=== PATIENT | female | born 1985 | race Hispanic/Latino ===

== ENCOUNTER 2023-02-21 11:45 | Inpatient (IN) | payer BC, OTHER ==
[2023-02-21 12:21] VITALS: BMI 39.4
[2023-02-21] MEDS ORDERED: NIFEdipine 10 MG CAP ONE (12:53)
[2023-02-21] MEDS ORDERED: Labetalol HCl 100 MG/20 ML VIAL ONE (12:53)
[2023-02-21] MEDS ORDERED: hydrALAZINE 20 MG/ML VIAL ONE (12:54)
[2023-02-21] MEDS ORDERED: Magnesium Sulfate 20 gm/500 ml 20 GM/500 ML BAG ONE (12:54)
[2023-02-21] MEDS ORDERED: hydrALAZINE 20 MG/ML VIAL SLOW IVP PRN ×5 (12:57→16:01)
[2023-02-21] MEDS ORDERED: Labetalol HCl 100 MG/20 ML VIAL SLOW IVP PRN ×3 (13:03→16:01)
[2023-02-21] MEDS ORDERED: Calcium Gluc 4.6 MEQ/10 ML (100 MG/ML) SLOW IVP PRN ×2 (13:03→16:01)
[2023-02-21] MEDS ORDERED: Lorazepam 2 MG/ML VIAL SLOW IVP PRN ×2 (13:03→16:01)
[2023-02-21] MEDS ORDERED: Lactated Ringer's 1,000 ML IV SCH (13:15)
[2023-02-21] MEDS ORDERED: Betamet Acet/Betamet Na Ph 30 MG/5 ML VIAL ONE (13:26)
[2023-02-21] MEDS ORDERED: Betamet Acet/Betamet Na Ph 30 MG/5 ML VIAL IM SCH (13:30)
[2023-02-21 13:36] LABS: #Eosinphils 0.1 10x3/uL (0.0-0.5); #Monocytes 0.7 10x3/uL (0.0-1.1); #Neutrophils 5.6 10x3/uL (1.5-8.4); %Basophils 0.3 % (0.0-2.0); %Eosinophils 0.5 % (0.0-6.0); %Lymphocytes 29.5 % (18.0-47.0); Hematocrit 38.1 % (34.9-44.5); Hemoglobin 13.1 g/dL (12.0-15.5); Mean Corpuscular HGB CONC 34.4 g/dL (32.0-36.0); Mean Corpuscular Hemoglobin 30.6 pg (27.0-33.0); Mean Platelet Volume 12.3 fl (7.4-10.4); Platelet Count 224 10x3/uL (150-450); RBC Distribution Width 13.2 % (11.5-14.5); Red Blood Cell (RBC) Count 4.28 10x6/uL (3.90-5.03); White Blood Cell (WBC) Count 9.2 10x3/uL (3.5-10.5)
[2023-02-21 13:41] LABS: Bilirubin Neg (Negative); Blood, Urine Negative (Negative); Clarity Clear (Clear); Glucose, Urine (Dipstick) Normal (Negative); Ketone, Urine Negative (Negative); Leukocyte 25 (Negative); Nitrite Negative (Negative); Protein, Urine (Dipstick) 100 mg/dl (Neg-Trace); Urobilinogen Normal mg/dL (Less than 2)
[2023-02-21] MEDS ORDERED: Ondansetron PF 4 MG/2 ML Vial IVP PRN ×4 (13:47→16:01)
[2023-02-21] MEDS ORDERED: Tranexamic Acid 1,000 MG/10 ML VIAL IVP PRN (13:47)
[2023-02-21] MEDS ORDERED: Promethazine HCl 25 MG/ML VIAL IM PRN ×4 (13:47→16:01)
[2023-02-21] MEDS ORDERED: Acetaminophen 500 MG TAB PO PRN (13:47)
[2023-02-21] MEDS ORDERED: Diphenoxylate HCl/Atropine Tablet PO PRN (13:47)
[2023-02-21] MEDS ORDERED: Carboprost 250 MCG/ML AMP IM PRN (13:47)
[2023-02-21] MEDS ORDERED: Misoprostol 200 MCG TAB PR PRN ×2 (13:47→16:01)
[2023-02-21 13:49] LABS: ALT (SGPT) 11 U/L (8-55); AST (SGOT) 21 U/L (5-34); Albumin 3.4 g/dL (3.5-5.0); Alkaline Phosphatase 80 U/L (40-110); Anion Gap 16 mmol/L (10-20); BUN (Urea Nitrogen) 6 mg/dL (7.0-18.7); Bilirubin, Total 0.3 mg/dL (0.2-1.2); Calc. Creatinine Clearance 228 mL/min (70-130); Calcium 9.1 mg/dL (7.8-10.44); Carbon Dioxide 18 mmol/L (22-29); Chloride 107 mmol/L (98-107); Estimated GFR 123; Glucose 111 mg/dL (70-105); Potassium 4.5 mmol/L (3.5-5.1); Protein, Total 6.4 g/dL (6.0-8.3); Sodium 136 mmol/L (136-145)
[2023-02-21] MEDS ORDERED: Magnesium Sulfate 4 GM in Sodium Chloride 0.9% 250 ML 250 ML IVPB SCH (14:00)
[2023-02-21] MEDS ORDERED: Magnesium Sulfate 20 gm/500 ml 4 GM/100 ML BAG IVPB SCH (14:00)
[2023-02-21] MEDS ORDERED: Magnesium 2 GM/50 ML(in water) 2 GM in Premix Bag 1 BAG IVPB SCH (14:00)
[2023-02-21] MEDS ORDERED: Oxytocin 30 units/NS 500 ML 500 ML IV SCH (14:00)
[2023-02-21] MEDS ORDERED: Magnesium Sulfate 20 gm/500 ml 20 GM/500 ML BAG IVPB PRN (14:00)
[2023-02-21] MEDS ORDERED: Labetalol HCl 100 MG TAB PO SCH (14:00)
[2023-02-21 14:06] LABS: CAUTI Indications for Culture Pregnancy; RBC/HPF None Seen HPF (0-3)
[2023-02-21 14:07] LABS: Bacteria/HPF 2+ HPF (None Seen)
[2023-02-21 14:09] LABS: Urine Culture Reflex Yes Yes
[2023-02-21] MEDS ORDERED: CEFAZOLIN 2 GM VIAL ONE (14:21)
[2023-02-21] MEDS ORDERED: Poractant Alfa 120 MG/1.5 ML SUV ONE (14:22)
[2023-02-21] MEDS ORDERED: PROPOFOL 20 ML ONE (14:44)
[2023-02-21] MEDS ORDERED: Fentanyl 250 MCG/5 ML VIAL ONE (14:44)
[2023-02-21] MEDS ORDERED: Ondansetron PF 4 MG/2 ML Vial ONE (14:54)
[2023-02-21 14:55] LABS: HBSAg Index 0.15 S/CO (0-0.99); Hep B Surf Ag - L&D Non-Reactive S/CO (NonReactive)
[2023-02-21 14:56] LABS: Syphilis Antibody Nonreactive (Nonreactive); Syphilis Antibody Index 0.09 S/CO (<1.00 Non-Reactive)
[2023-02-21 15:08] LABS: RapidComm Collect By OR NURSE
[2023-02-21 15:09] LABS: RapidComm Collect By OR NURSE; pH (Cord, venous) 7.207 (7.250-7.350)
[2023-02-21] MEDS ORDERED: Ondansetron HCl/PF 4 MG/2 ML Vial IVP PRN (15:28)
[2023-02-21] MEDS ORDERED: Naloxone HCl 0.4 mg/ml Vial IV PRN ×2 (15:28→15:30)
[2023-02-21] MEDS ORDERED: diphenhydrAMINE 50 MG/ML VIAL IVP PRN ×2 (15:28→15:30)
[2023-02-21] MEDS ORDERED: diphenhydrAMINE 50 MG/ML VIAL IM PRN ×2 (15:28→15:30)
[2023-02-21] MEDS ORDERED: Meperidine HCl/PF 25 MG/ML VIAL SLOW IVP PRN (15:28)
[2023-02-21] MEDS ORDERED: Fentanyl 50 MCG/1 ML VIAL SLOW IVP PRN (15:28)
[2023-02-21] MEDS ORDERED: diphenhydrAMINE 25 MG CAP PO PRN ×3 (15:28→16:01)
[2023-02-21] MEDS ORDERED: Communication Order-Pharmacy FS PRN ×2 (15:30→16:15)
[2023-02-21] MEDS ORDERED: Communication Order-Pharmacy FS SCH (15:30)
[2023-02-21] MEDS ORDERED: FENTANYL 500 MCG/10 ML VIAL 2,000 MCG in Sodium Chloride 0.9% 60 ML IV PRN (15:30)
[2023-02-21] MEDS ORDERED: Ketorolac Tromethamine 30 MG/ML VIAL IVP SCH (15:30)
[2023-02-21] MEDS ORDERED: FENTANYL 500 MCG/10 ML VIAL 1,000 MCG in Sodium Chloride 0.9% 30 ML IV PRN (16:00)
[2023-02-21] MEDS ORDERED: Meperidine HCl/PF 25 MG/ML VIAL IM PRN (16:01)
[2023-02-21] MEDS ORDERED: Boostrix 0.5 ML (Tdap) VIAL (>/=7 yrs of age) IM ONE (16:01)
[2023-02-21] MEDS ORDERED: Simethicone Chewable 80 MG TAB PO PRN (16:01)
[2023-02-21] MEDS ORDERED: Bisacodyl 10 MG SUPP PR PRN (16:01)
[2023-02-21 20:46] LABS: HIV (1/2) Antibody/Antigen Non-Reactive (NonReactive); HIV 1/2 INDEX 0.06 S/CO (<1.00)
[2023-02-21] MEDS: Ferrous Sulfate 325 MG TAB PO SCH (21:07)
[2023-02-21] MEDS: Docusate 100 MG CAP PO SCH (21:07)
[2023-02-21] MEDS: Labetalol HCl 200 MG TAB PO SCH (22:05)
[2023-02-21] MEDS: Magnesium Sulfate 20 gm/500 ml 20 GM/500 ML BAG IVPB SCH (23:20)
[2023-02-22 04:24] LABS: Hematocrit 35.5 % (34.9-44.5); Hemoglobin 12.2 g/dL (12.0-15.5); Mean Corpuscular HGB CONC 34.4 g/dL (32.0-36.0); Mean Corpuscular Volume 90.1 fl (81.6-98.3); Mean Platelet Volume 11.9 fl (7.4-10.4); Platelet Count 222 10x3/uL (150-450); RBC Distribution Width 13.3 % (11.5-14.5); Red Blood Cell (RBC) Count 3.94 10x6/uL (3.90-5.03); White Blood Cell (WBC) Count 18.5 10x3/uL (3.5-10.5)
[2023-02-22] MEDS: Labetalol HCl 200 MG TAB PO SCH ×3 (06:15→21:34)
[2023-02-22] MEDS: Magnesium Sulfate 20 gm/500 ml 20 GM/500 ML BAG IVPB SCH (10:38)
[2023-02-22] MEDS: Ibuprofen 800 MG TAB PO SCH ×2 (13:03→21:34)
[2023-02-22] MEDS: Docusate 100 MG CAP PO SCH ×2 (18:31→21:34)
[2023-02-22] MEDS: Ferrous Sulfate 325 MG TAB PO SCH ×2 (18:31→21:34)
[2023-02-22] MEDS: Prenatal Vitamin 1 TAB PO SCH (18:32)
[2023-02-22] MEDS: HYDROcodone/Acetaminophen 5/325 mg Tablet PO PRN (18:46)
[2023-02-22 20:17] LABS: Uric Acid 5.8 mg/dL (2.6-6.0)
[2023-02-22] MEDS: Ketorolac Tromethamine 30 MG/ML VIAL IVP SCH (21:34)
[2023-02-23] MEDS: Ketorolac Tromethamine 30 MG/ML VIAL IVP SCH ×2 (02:18→08:18)
[2023-02-23] MEDS: HYDROcodone/Acetaminophen 5/325 mg Tablet PO PRN (03:37)
[2023-02-23] MEDS: Labetalol HCl 200 MG TAB PO SCH ×3 (05:44→21:11)
[2023-02-23] MEDS: Ibuprofen 800 MG TAB PO SCH ×3 (05:44→21:11)
[2023-02-23] MEDS: Ferrous Sulfate 325 MG TAB PO SCH ×2 (07:42→21:11)
[2023-02-23] MEDS: Prenatal Vitamin 1 TAB PO SCH (08:35)
[2023-02-23] MEDS: Docusate 100 MG CAP PO SCH ×2 (08:35→21:11)
[2023-02-24] MEDS: Ibuprofen 800 MG TAB PO SCH ×2 (05:11→13:55)
[2023-02-24] MEDS: Labetalol HCl 200 MG TAB PO SCH ×2 (05:11→13:56)
[2023-02-24] MEDS: Ferrous Sulfate 325 MG TAB PO SCH (07:41)
[2023-02-24] MEDS: Docusate 100 MG CAP PO SCH (07:52)
[2023-02-24] MEDS: Prenatal Vitamin 1 TAB PO SCH (07:53)
[2023-02-24 11:35] VITALS: TEMP 98
[2023-02-24] MEDS: HYDROcodone/Acetaminophen 5/325 mg Tablet PO PRN ×2 (13:56→18:08)
[2023-02-24 13:57] VITALS: BP 149/78
== END 2023-02-24 18:15 | disposition home or self-care (01) | DRG 788 ==
LOC: CSHLD/OP 11:45 → CSHLD 13:48 → CSHPP 02-22 18:20
PROVIDERS: ADMIT Family Medicine; ATTEND Family Medicine
PROC: 10D00Z1 Extraction of Products of Conception, Low, Open Approach (ICD-10-PCS; principal; 2023-02-21)
DX: O13.3 Gestational [pregnancy-induced] hypertension without significant proteinuria, third trimester (principal); O14.14 Severe pre-eclampsia complicating childbirth; O36.5930 Maternal care for other known or suspected poor fetal growth, third trimester, not applicable or unspecified; O41.00X0 Oligohydramnios, unspecified trimester, not applicable or unspecified; O76 Abnormality in fetal heart rate and rhythm complicating labor and delivery; Z3A.29 29 weeks gestation of pregnancy; Z37.0 Single live birth
CPT/HCPCS: 51702; 71045; 71046; 76816; 80053; 81001; 82570; 82805; 84156; 84550; 85025; 85027; 86780; 86850; 86900; 86901; 87086; 87340; 87389; 88307; 94799; J0360; J0702; J2405; J2704; J3010; J3475; J3490